=== PATIENT | female | born 1985 | race Caucasian/White ===

== ENCOUNTER 2017-12-31 07:41 | Emergency (ER) | payer MEDICAID, SELFPAY ==
[2017-12-31 07:56] VITALS: BP 132/103; PULSE 63; RESP 16; TEMP 36.5; O2SAT 100
[2017-12-31 07:57] LABS: Bilirubin Negative (Negative); Blood Large (Negative); Clarity Sl Cloudy; Glucose Negative (Negative); Ketones Negative (Negative); Leukocyte Esterase Large (Negative); Nitrite Negative (Negative); Urobilinogen 0.2 EU/dL (Up TO 0.2)
[2017-12-31 08:09] LABS: Bacteria Few HPF (Negative); C & S Indicated? Yes; Casts Negative LPF (Negative); Crystals Negative HPF (Negative); Epithelial Cells Few HPF (Negative); Mucus Negative (Negative); RBC >50 (0-2); WBC >50 HPF (0-5)
--- NOTE | 2017-12-31 08:10 | ED.GENADUL_ITS ---
Disposition Clinical Impression: UTI (urinary tract infection) Disposition: HOME Condition: Stable Instructions: Urinary Tract Infection in Women (ED) Additional Instructions: Take antibiotics until finished. Take the Pyridium as needed and directed. Follow-up with your primary care doctor in 1-2 weeks for reevaluation. Return to the emergency department with any worsening or new concerning symptoms such as fever, increased pain, vomiting or any other concerns. Prescriptions: Cephalexin [Keflex] 500 mg PO BID 5 Days cap Phenazopyridine [Pyridium] 100 mg PO BID PRN #12 tab PRN Reason: Medical Decision Making - Lab Data test negative Laboratory Tests 12/31/17 07:50 Urine Color Yellow Urine Clarity Sl cloudy Urine pH 7.0 Ur Specific [place] 1.010 Urine Protein 30 H Urine Ketones Negative Urine Blood Large H Urine Nitrite Negative Urine Bilirubin Negative Urine Urobilinogen 0.2 Ur Leukocyte Esterase Large H Urine RBC >50 H Urine WBC >50 Ur Epithelial Cells Few Urine Crystals Negative Urine Bacteria Few Urine Casts Negative Urine Mucus Negative Ur Culture Indicated? Yes Urine Glucose Negative - Medical Decision Making 32-year-old female with history of urinary tract infections who presents with urinary frequency, urgency and dysuria since this morning. No other associated symptoms of fever, vomiting, abdominal pain or back pain. Vitals within normal limits. Abdomen soft nontender. No CVA tenderness. Urinalysis notes findings consistent with UTI. Patient was on Bactrim 4 months ago, will treat with Keflex. Patient was informed that we will send for urine culture and that if sensitivities indicate a different antibiotic for recommendation, she will be notified and her antibiotic will be switched. We will place patient on care management list to help arrange for follow-up appoint with her primary care doctor within the next week as needed and patient instructed to return to the ER if worse. History of Present Illness - General Chief complaint: Urinary Stated complaint: UTI Time Seen by Provider: 12/31/17 08:08 Source: patient Mode of arrival: ambulatory Limitations: no limitations - History of Present Illness Initial comments: Patient is a 32-year-old female presents with urinary frequency, urgency and dysuria since this morning. Patient has a history of urinary tract infection and states this feels similar. Last on antibiotics for urinary tract infection was 4 months ago and she took Bactrim. She denies fever, vomiting, abdominal pain or back pain or vaginal discharge. - Related Data Cephalexin [Keflex] 500 mg PO BID 5 Days cap 12/31/17 LamoTRIgine [LaMICtal] 50 mg PO DAILY 12/31/17 Phenazopyridine [Pyridium] 100 mg PO BID PRN #12 tab 12/31/17 Venlafaxine HCl [Effexor Xr] 75 mg PO DAILY 12/31/17 Allergies Allergy/AdvReac Type Severity Reaction Status Date / Time No Known Allergies Allergy Unverified 12/31/17 07:58 Review of Systems Constitutional: denies: chills, fever Eyes: denies: eye pain ENT: denies: ear pain, dental pain Respiratory: denies: cough, shortness of breath Cardiovascular: denies: chest pain, dyspnea on exertion Gastrointestinal: denies: abdominal pain, nausea, vomiting, diarrhea Genitourinary: urgency, dysuria, frequency. denies: hematuria Musculoskeletal: denies: back pain Skin: denies: rash, lesions Neurological: denies: headache, weakness, numbness Past Medical History - Past Medical History Medical history: no medical history Surgical history: bilateral tubal ligation Psychiatric history: anxiety, depression - Social History Smoking status: never smoker Alcohol use: occasionally Drug use: none General Exam - General Limitations: no limitations General appearance: alert, in no apparent distress - Eye Eye exam: Present: EOMI - Respiratory Respiratory exam: Present: normal lung sounds bilaterally. Absent: respiratory distress, wheezes, rales, rhonchi, stridor - Cardiovascular Cardiovascular Exam: Present: regular rate, normal rhythm. Absent: bradycardia , tachycardia - GI/Abdominal GI/Abdominal exam: Present: soft, normal bowel sounds. Absent: distended, tenderness, guarding, rebound, rigid - Back Exam Back exam: Absent: CVA tenderness (R), CVA tenderness (L) - Neurological Exam Neurological exam: Present: alert, oriented X3 - Psychiatric Psychiatric exam: Present: normal affect - Skin Skin exam: Present: warm, dry, intact Course Vital Signs - 24 hr 12/31/17 07:56 Temperature 97.7 F Pulse 63 Respiratory 16 Rate Blood Pressure 132/103 Pulse Oximetry 100
--- NOTE | 2018-01-02 16:15 | CMPROGNOTE_ITS ---
Care Management Progress Note 01/02-Dr. Cruz requested assistance with a PCP (Dr. Prado) f/u in 2-3 weeks for UTI. Referral faxed to [facility].
--- NOTE | 2018-01-04 15:45 | W.ED.FU ---
C&S viewed and patient on appropriate antibiotic.
--- NOTE | 2018-01-04 15:46 | ED.FU.B_ITS ---
C&S viewed and patient on appropriate antibiotic.
== END 2017-12-31 08:46 | disposition home or self-care (01) ==
PROVIDERS: Emergency Medicine; Emergency Provider Physician Assistant; PCP Family Medicine
DX: N39.0 Urinary tract infection, site not specified (principal); Z87.440 Personal history of urinary (tract) infections
CPT/HCPCS: 81025; 87077; 99283; 81003; 81015; 87086; 87186

== ENCOUNTER 2018-09-07 10:34 | Outpatient (CLI) | payer BC, SELFPAY ==
[2018-09-07 11:21] LABS: Abs Immature Grans 0.03 k/cumm (0.0-0.09); Absolute Basophil Count 0.03 k/cumm (0.0-0.2); Absolute Eosinophil Count 0.14 k/cumm (0.0-0.7); Absolute Lymphocyte Count 2.14 k/cumm (1.2-3.4); Absolute Monocyte Count 0.62 k/cumm (0.11-0.7); Absolute Neutrophil Count 5.45 k/cumm (1.2-6.7); Basophils % 0.4; Eosinophils % 1.7; HCT 44.9 % (36.0-46.0); HGB 14.7 g/dL (12.0-15.5); Immature Grans % 0.4; Lymphocytes % 25.4; Mean Corp. HGB Concentration 32.7 g/dL (32.0-36.0); Mean Corpuscular Hemoglobin 29.8 pg (27.0-33.0); Mean Corpuscular Volume 91.1 fL (80-95); Mean Platelet Volume 11.4 fL (8.0-11.0); Monocytes % 7.4; Neutrophils % 64.7; Platelet Count 270 x1000/uL (130-400); RBC 4.93 m/cumm (4.00-5.20); RBC Distribution Width 13.7 % (11.7-14.6); White Blood Cell Count 8.41 k/cumm (4.4-10.8)
[2018-09-07 12:01] LABS: Anion Gap 11.2 mmol/L (3-11); BUN 11 mg/dL (7-18); CO2 27.8 mmol/L (21.0-32.0); CREATININE 0.93 mg/dL (0.55-1.02); Calcium 9.1 mg/dL (8.5-10.1); Chloride 102 mmol/L (98-107); Glucose 89 mg/dL (70-100); Potassium 4.3 mmol/L (3.5-5.1); Sodium 141 mmol/L (136-145); TSH 0.57 uIU/mL (0.358-3.74)
== END 2018-09-07 10:54 ==
PROVIDERS: PCP Family Medicine; Visit Provider Physician Assistant
DX: R53.83 Other fatigue (principal)
CPT/HCPCS: 36415; 80048; 84443; 85025

== ENCOUNTER 2018-10-17 17:41 | Emergency (ER) | payer BC, SELFPAY ==
[2018-10-17 17:49] VITALS: BP 123/77; PULSE 79; RESP 16; TEMP 36.7; O2SAT 99
[2018-10-17 18:03] LABS: Bilirubin Negative (Negative); Blood Moderate (Negative); Clarity Clear; Glucose Negative (Negative); Ketones Negative (Negative); Leukocyte Esterase Moderate (Negative); Nitrite Negative (Negative); Urobilinogen 0.2 EU/dL (Up TO 0.2)
--- NOTE | 2018-10-17 18:06 | W.ED.GENAD ---
Discharge Plan Disposition Patient Disposition: HOME Condition: Stable Discharge Details Chief Complaint: Urinary Clinical Impression: Urinary tract infection Primary Care Provider: Kaya Prado ED Provider: Bora Lambert Home Meds and New Rx's Prescriptions: New nitrofurantoin monohyd/m-cryst [Macrobid] 100 mg capsule 100 mg PO BID Qty: 10 RF: 0 phenazopyridine [Pyridium] 200 mg tablet 200 mg PO TID Qty: 5 RF: 0 Continued topiramate [Topamax] 50 mg Tablet 50 mg PO DAILY RF: 0 desvenlafaxine succinate [Pristiq] 25 mg Tablet Extended Release 24 Hr 25 mg PO DAILY RF: 0 Discharge Instructions Instructions: Urinary Tract Infection in Women (ED) Additional Instructions: Return immediately to the emergency department for any new or worsening symptoms or if not improving over the next 24 to 48 hours. Feel free to follow-up with your primary care provider for reassessment otherwise a referral has been placed for urology follow-up for your recurrent urinary tract infections. Referrals: Mat Belle MD [ [facility] STAFF PHYSICIAN] - (If you do not hear from the office next couple days please contact them for arrangement of follow-up appointment when they have availability.) Medical Decision Making Patient presenting to the emergency department for chief complaint of urinary tract infection type symptoms. Patient states that this began 3 days ago with urgency frequency and burning with urination that is increased over these days. She has increased hydration and tried [id number] therapies with no benefit. Patient does state that this is her sixth or seventh urinary tract infection within the last year and previous to this she has had no other urinary tract infections. Patient is nontoxic in appearance. Physical exam is unremarkable. Urinalysis shows blood, leukocyte esterase, and greater than 50 WBCs. Given this patient was placed upon Macrobid and given prescription for Pyridium for symptomatic control. Return precautions discussed. Given that patient has had multiple recurrent urinary tract infections referral was placed for follow-up with urology at their discretion or availability. After discussion of diagnosis and plan of care patient has no further needs, questions, or concerns and states clear understanding to return to the emergency department for any worsening symptoms. HPI General Mode of arrival: ambulatory. Date/Time Provider Initiated Documentation: 10/17/18 17:50. Information obtained by: patient. History of Present Illness 33 year old F presents to the emergency department with the chief complaint of UTI symptoms, described as moderate and similar to prior episodes, with intensity rated at 7. Quality is described as burning, and is localized to the genitals. Patient started experiencing this day(s) (3) and it has been constant. No exacerbating factors reported . Patient notes no other symptoms.. Patient did receive the following treatments prior to arrival, other (AZO) Related Data Home Medications Medication Instructions Recorded Confirmed desvenlafaxine succinate [Pristiq] 25 mg PO DAILY 10/17/18 10/17/18 nitrofurantoin monohyd/m-cryst 100 mg PO BID #10 cap 10/17/18 [Macrobid] phenazopyridine [Pyridium] 200 mg PO TID #5 tab 10/17/18 topiramate [Topamax] 50 mg PO DAILY 10/17/18 10/17/18 Previous Rx's Medication Instructions Recorded nitrofurantoin monohyd/m-cryst 100 mg PO BID #10 cap 10/17/18 [Macrobid] phenazopyridine [Pyridium] 200 mg PO TID #5 tab 10/17/18 Allergies Allergy/AdvReac Type Severity Reaction Status Date / Time No Known Allergies Allergy Unverified 10/17/18 17:58 General Stated Complaint: Urinary KENDAL: 4 Review of Systems Constitutional Denies body ache(s), Denies chills, Denies fever(s), Denies malaise and Denies weakness Cardiovascular Denies chest pain Respiratory Reports system reviewed and no additional complaints, except as docu Gastrointestinal Denies abdominal pain, Denies nausea and Denies vomiting Genitourinary Reports as per HPI, Denies hematuria, Reports urinary frequency, Reports dysuria and Reports urinary urgency Neurologic Denies weakness [facility] Social History Smoking/Tobacco Use Status: Never Alcohol Intake: current Alcohol Intake frequency: a few times a week Drug use: Daily Substance use type: marijuana Do you feel safe at home: Yes Do you feel safe in your relationship?: Yes Exam Const General: cooperative and no acute distress Orientation: alert, awake and oriented x3 Resp Effort & Inspection: normal respiratory effort and able to speak in complete sentences Auscultation: clear to auscultation bilaterally Cardio Rate: regular rate Rhythm: regular rhythm Heart Sounds: S1 normal and S2 normal GI Palpation: nontender Back/Spine/Pelvis Back: no CVA tenderness Neuro General: alert, awake and oriented x3 Extrem General: normal capillary refill Course Vital Signs Temperature 36.7 C 10/17/18 17:49 Pulse 79 10/17/18 17:49 Respiratory Rate 16 10/17/18 17:49 Blood Pressure 123/77 10/17/18 17:49 Pulse Oximetry 99 10/17/18 17:49 Temperature 36.7 C 10/17/18 17:49 Temperature Source Temporal Artery Scan 10/17/18 17:49 Pulse 79 10/17/18 17:49 Respiratory Rate 16 10/17/18 17:49 Respiratory Effort Non-Labored 10/17/18 17:55 Blood Pressure 123/77 10/17/18 17:49 Blood Pressure Position Sitting 10/17/18 17:49 Pulse Oximetry 99 10/17/18 17:49 Oxygen Delivery Method Room Air 10/17/18 17:49 Oxygen Flow Rate 0 10/17/18 17:49 Pain Level 7 10/17/18 18:02 Lab/Test Results Lab/Test Results: POC- Test(urine) Negative
[2018-10-17 18:18] LABS: RBC 0-2 (0-2); WBC >50 HPF (0-5)
[2018-10-17 18:19] LABS: Bacteria Negative HPF (Negative); C & S Indicated? Yes; Casts Negative LPF (Negative); Crystals Negative HPF (Negative); Epithelial Cells Rare HPF (Negative); Mucus Negative (Negative)
--- NOTE | 2018-10-17 18:44 | NUR.NOTE ---
Nursing Note: Referral faxed to [facility] for follow up of recurrent UTI's. Merlyn Nayak.
[2018-10-17] MEDS: MacroBID 100 MG CAP PO (19:04)
[2018-10-17] MEDS: Phenazopyridine 200 MG TAB PO (19:04)
[2018-10-17 19:09] VITALS: BP 123/77; PULSE 79; RESP 16; TEMP 36.7; O2SAT 99
== END 2018-10-17 19:10 | disposition home or self-care (01) ==
PROVIDERS: Emergency Provider Nurse Practitioner Family; PCP Family Medicine
DX: N39.0 Urinary tract infection, site not specified (principal)
CPT/HCPCS: 81025; 99283; 81003; 81015; 87086